=== PATIENT | male | born 1985 | race Caucasian/White ===

== ENCOUNTER 2018-06-26 12:43 | Emergency (ER) | payer SELFPAY ==
[2018-06-26 12:44] VITALS: BP 166/93; PULSE 83; RESP 16; TEMP 36.6; O2SAT 99; BMI 22.7
--- NOTE | 2018-06-26 13:06 | US_ITS ---
STUDY: SCROTUM ULTRASOUND REASON FOR EXAM: Male, 32 years old. Pain/tenderness of the left testicle. TECHNIQUE: Ultrasound evaluation of the scrotum was performed with color Doppler and static hair-scale imaging. COMPARISON: None. FINDINGS: RIGHT TESTICLE INTRATESTICULAR: There is a normal size of the right testicle. The right testicle measures 4.1 cm x 3.1 cm x 2.5 cm. There is a homogenous echotexture. There is normal arterial and normal venous vascularity. There is no demonstrated right testicular mass or cyst. EXTRATESTICULAR: The epididymis is normal in size. The epididymis head measures 1.4 cm x 1.2 cm x 0.7 cm. There is normal vascularity of the epididymis. There is no demonstrated epididymal cystic structure. There is no demonstrated hydrocele. There is no demonstrated varicocele. There is no demonstrated extratesticular mass or cyst. LEFT TESTICLE INTRATESTICULAR: There is a normal size of the left testicle. The left testicle measures 4.1 cm x 2.7 cm x 2.0 cm. There is a homogenous echotexture. There is normal arterial and normal venous vascularity. There is no demonstrated left testicular mass or cyst. EXTRATESTICULAR: The epididymis is normal in size. The epididymis head measures 0.8 cm x 1 cm x 0.7 cm. There is normal vascularity of the epididymis. There is no demonstrated epididymal cystic structure. There is a small hydrocele. There are prominent extratesticular veins consistent with a varicocele. There is no demonstrated extratesticular mass or cyst. US/Testicular with Arterial Flow IMPRESSION: Small left hydrocele and varicocele. Electronically Signed: Darek Obrien MD at 14:30 EDT Tel [phone], Service support ,
[2018-06-26 14:36] LABS: Bacteria 0 SEEN /hpf (None Seen); Mucous, Urine 0 SEEN /hpf (<or=2+); Red Blood Cells-Urine 0 SEEN /hpf (0-5); Squamous Epithelial Cells - UA 0 SEEN /hpf (0-5); White Blood Cells 0 SEEN /hpf (0-5)
--- NOTE | 2018-06-26 14:37 | ED.VISSUMM ---
- ER Visit Summary Date of Service: 06/26/18 Chief Complaint: Lower abdominal pain and left testicular pain History of Present Illness: The patient is a 32 M who presents with lower abdominal and left testicular pain. He first noticed some discomfort in his lower abdomen about 3 days ago. He then noticed left testicular pain. He reports nausea but no vomiting. He denies urinary symptoms such as dysuria frequency or urgency. He is concerned this may be related to his prior vasectomy. He did notice an abnormal area along the back of his left testicle which is tender. Physical Examination: Afebrile vitals are unremarkable Moist mucous membranes Heart regular rate and rhythm Lungs are clear Abdomen soft Patient does have left testicular tenderness there is no enlargement no erythema or soft tissue swelling of the scrotum no rash, no urethral discharge Test Results: Scrotal and testicular ultrasound shows a small left hydrocele and varicocele. Urinalysis is unremarkable. Emergency Department Course and Treatment: Patient declined any analgesics here stating that he was comfortable at rest. His ultrasound showed a varicocele and hydrocele. He is instructed on supportive care. He was given a prescription for naproxen for pain control. He was referred to Dr. Cadet, urology engine repaire[employer]. Patient understands to return for new or worsening symptoms and was discharged home. Treatment Plan: [] Disposition: Discharge Impression: Hydrocele Varicocele This note was generated with [employer] dictation software. It may contain incorrect words, spelling, and punctuation that were not noted in review of the chart prior to signing ED Disposition - Plan for ED Patient: Chief Complaint: Complaint Instructions: ED Hydrocele Type Not Specified, ED Varicocele Prescriptions: Naproxen [Naprosyn] 500 mg PO BID #20 tab Referrals: Bao Cadet MD [STAFF PHYSICIAN] - Care Physician,No Primary [Primary Care Provider] -
--- NOTE | 2018-06-26 14:38 | ED.DEP ---
ED Disposition - Plan for ED Patient: Chief Complaint: Complaint Instructions: ED Hydrocele Type Not Specified, ED Varicocele Prescriptions: Naproxen [Naprosyn] 500 mg PO BID #20 tab Referrals: Care Physician,No Primary [Primary Care Provider] - Bao Cadet MD [STAFF PHYSICIAN] -
[2018-06-26 14:42] LABS: Color, Urine Yellow (Yellow); Glucose, Dipstick Normal (Normal); Ketone-Dipstick Negative (Negative); Leukocyte Esterase-Dipstick Negative /ul (Negative); Nitrite-Dipstick Negative (Negative); Occult Blood-Urine Negative /ul (Negative); Protein-Dipstick Negative (Negative); Urine Bilirubin Dipstick Negative (Negative); Urine Clarity Clear (Clear); Urine Urobilinogen Normal (Normal)
[2018-06-26 15:04] VITALS: BP 118/69; PULSE 72; RESP 15; O2SAT 98
== END 2018-06-26 15:05 | disposition home or self-care (01) ==
LOC: ED 13:42
PROVIDERS: Emergency Provider Emergency Medicine
DX: N43.3 Hydrocele, unspecified (principal); I86.1 Scrotal varices; Z98.52 Vasectomy status
CPT/HCPCS: 76870; 81001; 93976; 99282

== ENCOUNTER 2021-04-05 09:49 | Day surgery (SDC) | payer SELFPAY ==
--- NOTE | 2021-03-30 16:16 | PCM.HP.BLA ---
History and Physical Date of Admission: 04/05/21 Anel Neal 1985 ? ? REFERRING PHYSICIAN:?? Julia Reese MD ? CHIEF COMPLAINT:?? Consult (Lump, Left Axilla) ? HPI: The patient is a pleasant 35 year old male who presents with left axillary mass. He noted it about a year ago and he feels that it has increased in size. He notes increasing discomfort in the area, when initially it was asymptomatic. He has two brothers with lymphoma. ? Needle core biopsy revealed benign lymph node. I am concerned about sampling error. Given patient?s family history, I have recommended excisional biopsy of this lymph node ? PAST MEDICAL HISTORY Left varicocele?? 06/26/2018 ? ? PAST SURGICAL HISTORY OF? 2012 ? vasectomy Excision of left neck lump as child ? Past injuries - denies bony fractures ?? Current Outpatient Medications omeprazole ? ?ALLERGIES: Patient has no known allergies. ? PERSONAL HISTORY: ? Smoking status:? Never Smoker ? Smokeless tobacco:? Never Used Vaping Use ? Vaping Use:? Never used Substance Use Topics ? Alcohol use:? No ? Drug use:? No ? ? FAMILY HISTORY ? Cancer? Brother 41 ? lymphoma, stage 4 ? Aneurysm? Father? AAA ? Cancer? Maternal Grandmother ? Cancer? Maternal Grandfather? Cancer? Brother 31 ? Hodgkin's lymphoma ? ? REVIEW OF SYSTEMS: ? General:?? The patient denies fatigue, denies weight loss, denies weight gain, denies feeling hot, and denies feelings of cold. ? Eyes:? The patient denies glaucoma, denies eye injury/surgery, does not wear glasses or contacts. ? Ear/Nose/Throat:? The patient denies allergies, denies hayfever, denies ear infections, and denies bloody noses. ? Cardiovascular:? The patient denies chest pain, denies heart disease, denies high blood pressure,denies cardiac stent, denies prior heart attack, denies irregular heart beat, denies high cholesterol,? denies poor circulation, denies heart failure, other cardiac issues, denies claudication, denies cold feet, denies peripheral arterial stent. ? Respiratory:? The patient denies tuberculosis, denies pneumonia, denies frequent cough, denies pulmonary embolism, denies shortness of breath, and denies coughing up blood. ? Gastrointestinal:? The patient NOTES difficulty swallowing, denies acid reflux, denies ulcers, denies vomiting, denies jaundice/hepatitis, denies gallbladder problems, denies black or tarry stools, denies hemorrhoids, denies bleeding from rectum, denies diverticulitis, denies constipation, denies diarrhea, denies loss of stool control, and denies hernias. ? Kidney/Bladder:? The patient denies kidney stones, denies urine infections, and denies bloody urine. ? Skin:? The patient denies a history of skin cancer, denies bleeding/changing moles, and denies a history of skin rash. ? Neurologic:? The patient denies a history of epilepsy/convulsions, denies headaches, denies head/spinal injuries, and denies stroke/TIA. ? Psychiatric:? The patient denies psychiatric medications, denies depression, and denies voices, denies substance abuse. ? Endocrine:? The patient denies thyroid disorders, denies diabetes, and denies hormonal problems. ? Hematologic:? The patient denies a history of bruising, denies bleeding, and denies anemia, denies blood clots. ? Infections:? The patient denies a history of measles and mumps, denies rheumatic fever, and denies sexually transmitted diseases. ? Musculoskeletal:? The patient denies back pain/injury, denies back problems, denies sciatica, denies knee/foot trouble, denies arthritis, or denies gout. ? ? PHYSICAL EXAMINATION: General:? The patient is 35 year old male, well nourished, well hydrated in no acute distress.? The patient is oriented to time, place, and person. VITALS: Blood pressure 128/82, pulse 89, temperature 36.3 ?C (97.3 ?F), height 180.3 cm (5' 11), weight 80.7 kg (178 lb), SpO2 98 %. Body mass index is 24.83 kg/m?. ? Head ? Normocephalic. EOM intact with sclera clear and no icterus noted. Neck - supple with no jugular venous distention noted. Trachea is midline.? No thyroid enlargement or thyroid nodules detected. No masses noted. Chest/breast ? no palpable breast masses noted Lungs ? clear to auscultation. Normal breath sounds. No rales/rhonchi/wheezing noted. No labored breathing noted, such as retractions. No cough heard. Heart ? normal S1 and S2 auscultated. No rubs/clicks/murmurs noted. Regular rate. Abdomen ? soft and benign. Normal bowel sounds No abdominal bruits noted, no organomegaly noted. Extremities ? no calf tenderness noted. No pitting edema noted. Skin ? normal skin integrity. Lymph ? no cervical adenopathy detected, no supraclavicular adenopathy detected, left axillary mass - 3 cm, no right axillary adenopathy detected Neurological ? gait normal, no focal deficits noted Psych ? calm and appropriate ? ? ? IMPRESSION: left axillary mass - adenopathy ? PLAN:?? I have discussed the above with the patient. I have offered excisional biopsy of this lesion. I have explained the procedure to the patient. I have counseled the patient as to the risks of the procedure, including but not limited to: infection, bleeding, injury to any blood vessels/nerves, scar tissue, lymph leak, wound infections, complications of anesthesia, etc. ? the patient understands. ? The patient was offered a surgery/procedure. The provider and patient have discussed in detail the risk of exposure to and/or potential harm posed by the COVID-19 virus with having a surgery/procedure at this time versus the risk of delaying the surgery/procedure. It is not possible to know either the risk of delaying the surgery or procedure or chance of getting an infection with perfect accuracy, but a joint decision was made between the patient and the provider to proceed at this time with the scheduled surgery/procedure. ? The patient wishes to proceed? I have answered all questions to the patient?s satisfaction and the patient has no further questions. ? . Diagnoses: (R22.32) Axillary mass, left? (primary encounter diagnosis) ??? Return to Clinic: The patient is instructed to follow-up with me after the procedure.
--- NOTE | 2021-04-05 | IMM_PTH ---
PATIENT: SERAFIN HERNÁNDEZ [place] [facility] [place][id number] AGE/SX: 35/M ROOM: RE04/05/[address]: Dr. Julia Reese MD : 1985 BED: DIS: 04/05/2021 SPEC #: [id number] RECD: 04/06/21 13:02 STATUS: ABDIRAHMAN REQ #: [id number] GARTH: 04/05/21 00:[address]: Julia Reese DEPT: IMMUNOHISTOCHEMISTRY RECD BY: Mariajose Delacruz ENTERED: 04/06/21 13:04 SP TYPE: IMMUNO OTHR DR: No Primary Care Phys Tissues: Axillary lymph node, NOS Procedures: BCL-2 (add) BCL-6 (add) CD10 (add) CD15 (add) CD20 (add) CD23 (add) CD30 (add) CD43 (add) CD45 (add) CD5 (add) CD79A (add) CYCLIN (add) KI-67 (add) CD3 (initial) PHYSICIAN & [address] [address] SPECIMEN INFORMATION: Tissue Source: Left axillary mass Clinical Info: Left axillary mass, adenopathy Specimen Number: [id number] #1-6 CPT code: 69682, 74237 x23 METHODOLOGY: Deparaffinized sections of prefer/formalin-fixed tissue or PAP/DQ stained slides are incubated with monoclonal/polyclonal antibodies/oligonucleotide probes. Localization is made via biotin free immunoperoxidase method. Appropriate controls are performed and reacted as expected. Results on target cell population are indicated in the following table: RESULTS: ANTIBODY / CLONE RESULT Block 1 CD15 (MMA) negative CD30 (Ric-H2) negative Block 2 CD15 (MMA) negative CD30 (Ric-H2) negative Block 3 CD3 (PS1) negative CD5 (SP10) negative CD10 (56C6) negative CD15 (MMA) negative CD20 (L26) positive CD23 (1B12) negative (follicular dendritic cell positive) CD30 (Ric-H2) negative CD43 (L60) negative CD45 (RP2/18) positive CD79a (11E3) positive BCL-2 (bcl-2/100/D5) positive BCL-6 (UV506L/A8) negative Cyclin D1/BCL-1 (SP4) negative Ki-67 (30-9) positive (10%) Block 4 CD15 (MMA) negative CD30 (Ric-H2) negative Block 5 CD15 (MMA) negative CD30 (Ric-H2) negative Block 6 CD15 (MMA) negative CD30 (Ric-H2) negative These tests were developed and their performance characteristics determined by [facility]. They may not have been cleared or approved by the U.S. Food and Drug Administration. The FDA has determined that such clearance or approval is not necessary. The above immunohistochemical/dualISH markers are ordered and reviewed by the Pathologist. 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 See comment. SJ:kimberly 04/11/2021 This case is sent to [facility] for expert opinion, reviewed by Dr. Chapman and the above diagnosis is rendered. The complete report is viewable in the patient's EMR. Immunohistochemistry stains performed here and also additional immunohistochemical stains performed at [facility] supports the above diagnosis. Case has been reviewed in consultation with Dr. Skinner who concurs with the above diagnosis. IDC:AM
[2021-04-05] MEDS: Lactated Ringers 1,000 ML 100 ML IV ×2 (10:46→11:45)
[2021-04-05 10:48] VITALS: BP 170/99; PULSE 88; RESP 16; TEMP 37.1; O2SAT 99; BMI 24.3
--- NOTE | 2021-04-05 11:30 | LYM_PTH ---
PATIENT: SERAFIN HERNÁNDEZ LOC: [facility] [place][id number] AGE/SX: 35/M ROOM: RE04/05/[address]: Dr. Julia Reese MD : 1985 BED: DIS: 04/05/2021 SPEC #: [id number] RECD: 04/05/21 12:30 STATUS: ABDIRAHMAN REJovani #: [id number] GARTH: 04/05/21 11:[address]: Julia Reese DEPT: SURGICAL PATHOLOGY RECD BY: Jen Eisenberg ENTERED: 04/05/21 13:17 SP TYPE: LYM NODES OTHR DR: No Primary Care Phys Tissues: Lymph node, NOS Procedures: Gen Path Consultation (on slides) Surgery Specimen Level IV HEADER OPERATION: Excision, lymph node biopsy, axilla PRE-OP DIAGNOSIS: Left axillary mass adenopathy TISSUE SUBMITTED: Left axillary mass sent to lab fresh to rule out lymphoma MICROSCOPIC DIAGNOSIS Left axillary mass, excision: Nodular lymphocyte predominant Hodgkin lymphoma (NLPHL, pattern A). See microscopic description and comment. SJ:rg 04/11/2021 COMMENT The specimen is evaluated at the time of touch imprint by Dr. Lozano. Immediate Evaluation = Lymph node tissue. The specimen is sent to [facility] for expert opinion, reviewed by Dr. Chapman and the above diagnosis is rendered. Dr. Chapman also commented, clinicopathological correlation is suggested. Close follow-up with careful monitoring of the response to treatment is recommended. The complete report is viewable in the patient's EMR. Immunohistochemistry ([id number]) performed here and also additional immunohistochemical stains performed at [facility] supports the above diagnosis. Flow cytometry study performed at [facility] shows no evidence of B-cell or T-cell lymphoma. This case was reviewed and diagnosis discussed with Dr. Ledezma on 04/19/21. Case has been reviewed in consultation with Dr. Skinner who concurs with the above diagnosis. IDC:AM MICROSCOPIC DESCRIPTION Slides are reviewed. The enlarged lymph node shows a nodular pattern under low magnification. Nodules are large, ill-defined and vague. They contain pleomorphic population of lymphocytes with predominance of small cells and clusters of large atypical neoplastic cells. There are no fibrous septae individual nodules. Tumor cells scattered within the nodules (lymphocyte predominant cells; LP cells; popcorn cells) are large with multilobated and folded nuclei, prominent nucleoli and pale vesicular chromatin. Immunophenotype CD20 shows large ill-defined nodules (low magnification). These nodules are composed of small B-cells, large neoplastic cells and occasional T-cells. The cells between vague nodules are mostly small T-cells. The staining with CD23 shows expanded follicular dendritic cell ([facility]) meshwork. Neoplastic cells (LP cells; popcorn cells) are positive for B-cell markers, CD45 and BCL6. GROSS DESCRIPTION Received fresh for lymphoma protocol labeled with the patient's name is a specimen designated left axillary mass. The specimen consists of an ovoid piece of alamo nodule consistent with enlarged lymph node measuring 5 x 4 x 2 cm. Sections reveal fleshy cut surfaces. A section is submitted for flow cytometry study. Two touch imprints are prepared. Biological Sciences Professor sections are submitted in six cassettes. / SJ:kimberly 04/05/21 TC:0 CPT: 56173, 20322 ADDENDUM ADDENDUM ADDENDUM ADDENDUM ADDENDUM ADDENDUM ADDENDUM ADDENDUM ADDENDUM ADDENDUM 04/28/2021 09:34 ADDENDUM 04/28/2021 09:34 ADDENDUM 04/28/2021 09:34 ADDENDUM 04/28/2021 09:34 ADDENDUM 04/28/2021 09:34 This addendum is added to incorporate an outside pathology consultation report. The case was examined at [facility] (#[id number]) and the following diagnosis was rendered. Left axillar mass, excision: Nodular lymphocyte-predominant Hodgkin lymphoma. Please see complete above mentioned consultation report in EMR
[2021-04-05] MEDS: Cefazolin 2 GM in 0.9% Normal Saline 100 ML IV (11:45)
[2021-04-05] MEDS: Bupiv/Epi 0.25% 30 ML Vial (12:45)
--- NOTE | 2021-04-05 13:00 | OP.PCM_ITS ---
Report of Operation Date of Procedure: 04/05/21 Pre-Operative Diagnosis: enlarged lymph node of left axilla Post-Operative Diagnosis: same, pathology pending Surgery/Procedure Performed:: excision of enlarged lymph node of left axilla Description of Surgical Findings:: enlarged lymph node of left axilla at least 3 cm Type of Anesthesia: General Anesthesiologist: Vince Coates Specimen's removed: left axillary lymph node Estimated Blood Loss (mL): 10 ml Fluids Replaced: 800 ml RL Description of Procedure: After informed consent was given, the patient was brought to the Operating Room. Appropriate time out protocol was followed. The site of surgery was marked in the preoperative area. The patient was placed under anesthesia by the anesthesia provider. The patient?s left axilla was then prepped with a surgical skin preparation and sterile surgical drapes were placed. The skin and subcutaneous tissues in and around the lesion were then infiltrated with 0.25% marcaine with epinephrine. A skin incision was then made with a 15 blade scalpel at the inferior aspect within the hair bearing area of the left axilla. The incision was carried down through to the subcutaneous tissues. Any hemorrhage was controlled with electrocautery. Blunt dissection w as then done to palpate out the lymph node. It was deep in the axillary space. The fascia was divided to reach this palpable mass. The mass was then bluntly dissected from the surrounding tissues. It was palpated close to the thoracic wall. The lesion was palpated out and then from the surrounding tissues using blunt and sharp dissection. Any bleeding was controlled by electrocoagulation. The vascular pedicle was ligated with vicryl suture. Smaller vessels were ligated with hemoclips. The lesion was then removed from the cavity and forwarded to pathology for analysis. The cavity was carefully examined no further suspicious lesions were noted. Hemostasis was achieved with electrocautery. Racquel was then applied to the cavity. The fascia was reapproximated with interrupted 2-0 vicryl suture. The subdermal tissues were then reapproximated with 3-0 vicryl suture in a simple interrupted fashion. The skin incision was closed using 4-0 monocryl in a running subcuticular fashion. Steristrips and Cavilon was used to reinforce the skin closure and a proper sterile dressing was applied. The patient tolerated the procedure well and was brought to the Recovery Room in stable condition. Complications none noted Admit VTE Documentation VTE Present on Admission: Yes VTE Mechan Device Prophylaxis: SCD's
--- NOTE | 2021-04-05 13:07 | DCINST_ITS ---
Discharge Instructions Follow Up Care Test Results: Test results from this visit will be discussed in further detail at your follow-up appointment, if applicable. Discharge Plan Admission Attending Provider: Julia Reese Primary Care Provider: Care Physician,No Primary Instructions Additional Instructions / Restrictions: Recommended pain control regimen - May take 600 mg ibuprofen (Motrin) and then in 3-4 hours, may take 650 mg acetaminophen (Tylenol), then in 3-4 hours may take 600 mg ibuprofen, then in 3- 4 hours may take 650 mg acetaminophen and so on for 2-3 days May take narcotic pain medication for pain that is not controlled by above and at night for comfort through the night Leave dressings in place May get dressings wet in shower - do not scrub in the area and pat dry Do not soak - no tub baths/swimming Ice applied to areas of discomfort may help No lifting/pushing/pulling greater than 20 pounds for a month with left arm. Please call for a follow up appointment in 1-2 weeks, Discharge Orders/Prescriptions Prescriptions: New hydrocodone-acetaminophen 5-325 mg tablet 1 tab PO Q8H 5 Days Qty: 15 RF: 0 No Action omeprazole 20 mg Capsule,Delayed Release(Dr/Ec) 20 mg PO DAILY RF: 0 Referrals / Follow Up: Care Physician,No Primary [Primary Care Provider] -
[2021-04-05 13:16] VITALS: BP 144/98; BP 170/99; PULSE 70; RESP 16; TEMP 36.3; O2SAT 100
[2021-04-05 13:30] VITALS: BP 146/85; BP 170/99; PULSE 63; RESP 18; O2SAT 100
[2021-04-05 13:45] VITALS: BP 148/91; BP 170/99; PULSE 56; RESP 16; O2SAT 99
[2021-04-05 14:00] VITALS: BP 137/96; BP 170/99; PULSE 56; RESP 18; TEMP 36.3; O2SAT 100
[2021-04-05] MEDS: HYDROcodone Bitartrate/Apap 5/325 Tablet PO (14:47)
[2021-04-05 15:28] VITALS: BP 152/82; BP 170/99; PULSE 54; RESP 16; TEMP 36.1; O2SAT 99
== END 2021-04-05 15:31 ==
LOC: SDC 09:58 → AC 10:07
PROVIDERS: Referring Provider Surgery; Visit Provider Surgery
PROC: (CPT 38500; principal; 2021-04-05 11:15)
DX: R22.32 Localized swelling, mass and lump, left upper limb (principal)
CPT/HCPCS: 01610; 38525; 87426; 88305; 88325; 88341; 88342; J7120; J2405